=== PATIENT | male | born 1950 | race Caucasian/White ===

== ENCOUNTER 2019-10-19 14:07 | Emergency (ER) | payer OTHER ==
[~2019-10-19] VITALS: Ht 188 cm; Wt 83.9 kg
[~2019-10-19 14:07] MED LIST: AMOX500 PO; ASPI325EC PO; ASPI81CH PO; FLUO10 PO; KETO10 PO; Percocet 5-3251 EACH PO
[2019-10-19] MEDS ORDERED: Robaxin-750750 MG PO (15:09)
== END 2019-10-19 15:30 | disposition home or self-care (01) ==
LOC: ER 14:07
DX: S16.1XXA Strain of muscle, fascia and tendon at neck level, initial encounter (principal); F41.9 Anxiety disorder, unspecified; F32.9 Major depressive disorder, single episode, unspecified; Z79.899 Other long term (current) drug therapy; V43.52XA Car driver injured in collision with other type car in traffic accident, initial encounter
CPT/HCPCS: 99283

== ENCOUNTER 2019-12-11 16:14 | Emergency (ER) | payer OTHER ==
[~2019-12-11] VITALS: Ht 188 cm; Wt 86.2 kg
[~2019-12-11 16:14] MED LIST changes: +Robaxin-750750 MG PO
[2019-12-11 16:47] LABS: BASOPHILS ABSOLUTE AUTO 0.03 K/mm3 (0.00-0.23); BASOPHILS PERCENT AUTO 1 % (0-2); EOSINOPHILS PERCENT AUTO 2 % (0-6); Hematocrit 44.1 % (37.0-53.0); Hemoglobin 14.2 g/dL (13.5-17.5); IMMATURE GRAN ABSOLUTE AUTO 0.01 K/mm3 (0.00-0.10); IMMATURE GRAN PERCENT AUTO 0 % (0-1); LYMPHOCYTES PERCENT AUTO 24 % (21-46); MONOCYTES ABSOLUTE AUTO 0.57 K/mm3 (0.16-1.47); MONOCYTES PERCENT AUTO 9 % (4-13); Mean Corpuscular HGB 29.3 pg (26.0-34.0); Mean Corpuscular HGB Conc 32.2 g/dL (31.5-36.5); Mean Corpuscular Volume 91 fL (80-100); Mean Platelet Volume 11.6 fL (9.1-12.4); NEUTROPHILS ABSOLUTE AUTO 4.01 K/mm3 (1.96-9.15); NEUTROPHILS PERCENT AUTO 64 % (41-73); Platelet Count 179 K/mm3 (150-400); RDW Coefficient Variation 13.2 % (11.7-14.2); RDW Standard Deviation 44.1 fL (35.1-46.3); Red Blood Cell Count 4.84 M/mm3 (4.30-5.90); White Blood Cell Count 6.22 K/mm3 (4.00-11.30)
[2019-12-11 17:09] LABS: Alanine Aminotransfer (ALT/SGP 61 U/L (12-78); Albumin, Blood 3.5 g/dL (3.4-5.0); Alk Phos 103 U/L (50-136); Anion Gap 4 mmol/L (6-16); Aspartate Aminotrans (AST/SGOT 38 U/L (12-37); Bilirubin, Total 0.9 mg/dL (0.1-1.0); Blood Urea Nitrogen 19 mg/dL (8-24); Bun/Creatinine Ratio 23.8 (12.0-20.0); CO2, Blood 25 mmol/L (21-32); Calcium, Blood 8.8 mg/dL (8.5-10.1); Chloride, Blood 110 mmol/L (98-108); Globulin, Blood 3.6 g/dL (2.2-4.0); Glomerular Filtration Rate >60 (60-); Glucose, Blood 97 mg/dL (70-99); Potassium, Blood 3.7 mmol/L (3.5-5.5); Sodium, Blood 139 mmol/L (136-145); Total Protein, Blood 7.1 g/dL (6.4-8.2); Troponin I 0.032 ng/mL (0.000-0.040)
[2019-12-11] MEDS ORDERED: FINA5 PO (18:37)
[2019-12-11] MEDS ORDERED: Lopressor 50 mg50 MG PO (20:43)
[2019-12-11] MEDS ORDERED: ASPI325 PO (20:43)
== END 2019-12-11 20:52 | disposition home or self-care (01) ==
LOC: ER 16:14
PROVIDERS: Physician Assistant
DX: I48.91 Unspecified atrial fibrillation (principal); F15.10 Other stimulant abuse, uncomplicated; F41.9 Anxiety disorder, unspecified; F32.9 Major depressive disorder, single episode, unspecified; M17.10 Unilateral primary osteoarthritis, unspecified knee; Z79.899 Other long term (current) drug therapy
CPT/HCPCS: 36415; 71046; 80053; 84484; 85025; 93005; 93010; 96374; 99285-25

== ENCOUNTER 2019-12-12 15:59 | Emergency (ER) | payer OTHER ==
[~2019-12-12] VITALS: Ht 188 cm; Wt 86.2 kg
[~2019-12-12 15:59] MED LIST changes: +ASPI325 PO; +FINA5 PO; +Lopressor 50 mg50 MG PO
[2019-12-13] MEDS ORDERED: Neurontin 100100 MG PO (16:01)
== END 2019-12-12 16:30 | disposition left against medical advice (07) ==
LOC: ER 15:59
DX: I48.91 Unspecified atrial fibrillation (principal); Z79.899 Other long term (current) drug therapy; Z79.82 Long term (current) use of aspirin; F41.9 Anxiety disorder, unspecified; F32.9 Major depressive disorder, single episode, unspecified
CPT/HCPCS: 93005; 93010; 99284-25

== ENCOUNTER 2019-12-13 15:24 | Emergency (ER) | payer OTHER ==
[~2019-12-13] VITALS: Ht 188 cm; Wt 86.2 kg
[2019-12-13] MEDS ORDERED: Neurontin 100100 MG PO (16:01)
[2019-12-13 16:13] LABS: BASOPHILS ABSOLUTE AUTO 0.02 K/mm3 (0.00-0.23); BASOPHILS PERCENT AUTO 0 % (0-2); EOSINOPHILS ABSOLUTE AUTO 0.07 K/mm3 (0.00-0.68); EOSINOPHILS PERCENT AUTO 1 % (0-6); Hematocrit 46.1 % (37.0-53.0); Hemoglobin 14.6 g/dL (13.5-17.5); IMMATURE GRAN ABSOLUTE AUTO 0.02 K/mm3 (0.00-0.10); IMMATURE GRAN PERCENT AUTO 0 % (0-1); LYMPHOCYTES ABSOLUTE AUTO 2.17 K/mm3 (0.84-5.20); LYMPHOCYTES PERCENT AUTO 27 % (21-46); MONOCYTES ABSOLUTE AUTO 0.59 K/mm3 (0.16-1.47); MONOCYTES PERCENT AUTO 7 % (4-13); Mean Corpuscular HGB 28.6 pg (26.0-34.0); Mean Corpuscular HGB Conc 31.7 g/dL (31.5-36.5); Mean Corpuscular Volume 90 fL (80-100); Mean Platelet Volume 11.8 fL (9.1-12.4); NEUTROPHILS ABSOLUTE AUTO 5.29 K/mm3 (1.96-9.15); NEUTROPHILS PERCENT AUTO 65 % (41-73); Platelet Count 182 K/mm3 (150-400); RDW Coefficient Variation 13.2 % (11.7-14.2); RDW Standard Deviation 43.9 fL (35.1-46.3); Red Blood Cell Count 5.11 M/mm3 (4.30-5.90); White Blood Cell Count 8.16 K/mm3 (4.00-11.30)
[2019-12-13 16:30] LABS: Alanine Aminotransfer (ALT/SGP 97 U/L (12-78); Albumin, Blood 3.3 g/dL (3.4-5.0); Albumin/Globulin Ratio 0.9 (0.8-1.8); Alk Phos 114 U/L (50-136); Anion Gap 6 mmol/L (6-16); Aspartate Aminotrans (AST/SGOT 71 U/L (12-37); Blood Urea Nitrogen 33 mg/dL (8-24); CO2, Blood 23 mmol/L (21-32); Calcium, Blood 8.3 mg/dL (8.5-10.1); Chloride, Blood 107 mmol/L (98-108); Creatinine, Blood 0.79 mg/dL (0.60-1.20); Globulin, Blood 3.6 g/dL (2.2-4.0); Glomerular Filtration Rate >60 (60-); Glucose, Blood 130 mg/dL (70-99); Potassium, Blood 4.1 mmol/L (3.5-5.5); Sodium, Blood 136 mmol/L (136-145); Total Protein, Blood 6.9 g/dL (6.4-8.2); Troponin I 0.018 ng/mL (0.000-0.040)
== END 2019-12-13 18:18 | disposition home or self-care (01) ==
LOC: ER 15:24
PROVIDERS: Physician Assistant
DX: I50.9 Heart failure, unspecified (principal); I48.91 Unspecified atrial fibrillation; R06.01 Orthopnea; Z79.899 Other long term (current) drug therapy; Z79.82 Long term (current) use of aspirin; F32.9 Major depressive disorder, single episode, unspecified; F41.9 Anxiety disorder, unspecified
CPT/HCPCS: 36415; 71046; 71260; 80053; 83880; 84484; 85025; 85379; 93005; 93010; 96374-59; 99284-25; J1940; Q9967

== ENCOUNTER 2020-03-05 17:26 | Observation (INO) | payer OTHER ==
[~2020-03-05] VITALS: Ht 188 cm; Wt 85.0 kg
[~2020-03-05 17:26] MED LIST changes: -FLUO10 PO; +Neurontin 100100 MG PO
[2020-03-05 18:00] LABS: BASOPHILS ABSOLUTE AUTO 0.03 K/mm3 (0.00-0.23); BASOPHILS PERCENT AUTO 1 % (0-2); EOSINOPHILS ABSOLUTE AUTO 0.16 K/mm3 (0.00-0.68); EOSINOPHILS PERCENT AUTO 3 % (0-6); Hematocrit 46.8 % (37.0-53.0); Hemoglobin 14.7 g/dL (13.5-17.5); IMMATURE GRAN ABSOLUTE AUTO 0.01 K/mm3 (0.00-0.10); IMMATURE GRAN PERCENT AUTO 0 % (0-1); LYMPHOCYTES ABSOLUTE AUTO 1.68 K/mm3 (0.84-5.20); LYMPHOCYTES PERCENT AUTO 27 % (21-46); MONOCYTES ABSOLUTE AUTO 0.59 K/mm3 (0.16-1.47); MONOCYTES PERCENT AUTO 9 % (4-13); Mean Corpuscular HGB 28.9 pg (26.0-34.0); Mean Corpuscular HGB Conc 31.4 g/dL (31.5-36.5); Mean Corpuscular Volume 92 fL (80-100); Mean Platelet Volume 10.7 fL (9.1-12.4); NEUTROPHILS ABSOLUTE AUTO 3.82 K/mm3 (1.96-9.15); NEUTROPHILS PERCENT AUTO 61 % (41-73); Platelet Count 182 K/mm3 (150-400); RDW Coefficient Variation 14.6 % (11.7-14.2); RDW Standard Deviation 49.1 fL (35.1-46.3); Red Blood Cell Count 5.09 M/mm3 (4.30-5.90); White Blood Cell Count 6.29 K/mm3 (4.00-11.30)
[2020-03-05 18:20] LABS: Alanine Aminotransfer (ALT/SGP 45 U/L (12-78); Albumin, Blood 3.1 g/dL (3.4-5.0); Albumin/Globulin Ratio 0.7 (0.8-1.8); Alk Phos 100 U/L (50-136); Anion Gap 6 mmol/L (6-16); Aspartate Aminotrans (AST/SGOT 58 U/L (12-37); Bilirubin, Total 0.6 mg/dL (0.1-1.0); Blood Urea Nitrogen 29 mg/dL (8-24); Bun/Creatinine Ratio 34.6 (12.0-20.0); CO2, Blood 21 mmol/L (21-32); Calcium, Blood 8.7 mg/dL (8.5-10.1); Chloride, Blood 109 mmol/L (98-108); Creatinine, Blood 0.84 mg/dL (0.60-1.20); Globulin, Blood 4.5 g/dL (2.2-4.0); Glomerular Filtration Rate >60 (60-); Glucose, Blood 107 mg/dL (70-99); Potassium, Blood 4.8 mmol/L (3.5-5.5); Sodium, Blood 136 mmol/L (136-145); Total Protein, Blood 7.6 g/dL (6.4-8.2); Troponin I <0.015 ng/mL (0.000-0.040)
[2020-03-05] MEDS ORDERED: Prozac40 MG PO (19:14)
[2020-03-05] MEDS ORDERED: SPIR25 PO (19:15)
[2020-03-05] MEDS ORDERED: WARF5 PO (19:15)
[2020-03-05] MEDS ORDERED: TORSE20 PO (19:16)
[2020-03-05] MEDS ORDERED: ENTRESTO 24 MG1 EAC2 PO (19:17)
[2020-03-05] MEDS ORDERED: LOSARTAN POTASS25 M2 PO (19:17)
[2020-03-05] MEDS ORDERED: METO50ER PO (19:18)
[2020-03-05] MEDS ORDERED: POTCHL20ER PO (19:21)
[2020-03-05 19:43] LABS: International Normalized Ratio 2.15
[2020-03-05] MEDS ORDERED: ENTRESTO 24 MG1 EACH PO (20:10)
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
--- NOTE | 2020-03-06 06:04 | NUR ---
SHIFT SUMMARY PT A&O X4. VSS. PT INDEPENDENT IN RM. NO EVENTS OR CHANGES OVER NIGHT. WILL CONTINUE TO MONITOR AND PROVIDE CARE UNTIL REPORT OFF TO DAY SHIFT RN.
[2020-03-06 06:11] LABS: BASOPHILS ABSOLUTE AUTO 0.03 K/mm3 (0.00-0.23); BASOPHILS PERCENT AUTO 1 % (0-2); EOSINOPHILS PERCENT AUTO 4 % (0-6); Hematocrit 47.7 % (37.0-53.0); Hemoglobin 14.8 g/dL (13.5-17.5); IMMATURE GRAN ABSOLUTE AUTO 0.01 K/mm3 (0.00-0.10); IMMATURE GRAN PERCENT AUTO 0 % (0-1); LYMPHOCYTES ABSOLUTE AUTO 2.24 K/mm3 (0.84-5.20); LYMPHOCYTES PERCENT AUTO 43 % (21-46); MONOCYTES ABSOLUTE AUTO 0.55 K/mm3 (0.16-1.47); MONOCYTES PERCENT AUTO 11 % (4-13); Mean Corpuscular Volume 90 fL (80-100); Mean Platelet Volume 10.6 fL (9.1-12.4); NEUTROPHILS PERCENT AUTO 42 % (41-73); Platelet Count 176 K/mm3 (150-400); RDW Coefficient Variation 14.5 % (11.7-14.2); RDW Standard Deviation 48.5 fL (35.1-46.3); Red Blood Cell Count 5.28 M/mm3 (4.30-5.90); White Blood Cell Count 5.23 K/mm3 (4.00-11.30)
[2020-03-06 06:27] LABS: International Normalized Ratio 2.19; Prothrombin Time Results 22.4 Sec (9.7-11.5)
[2020-03-06 06:28] LABS: Anion Gap 3 mmol/L (6-16); Blood Urea Nitrogen 23 mg/dL (8-24); Bun/Creatinine Ratio 29.6 (12.0-20.0); CO2, Blood 28 mmol/L (21-32); Calcium, Blood 8.5 mg/dL (8.5-10.1); Chloride, Blood 110 mmol/L (98-108); Creatinine, Blood 0.78 mg/dL (0.60-1.20); Glomerular Filtration Rate >60 (60-); Glucose, Blood 87 mg/dL (70-99); Magnesium, Blood 2.3 mg/dL (1.6-2.4); Potassium, Blood 4.2 mmol/L (3.5-5.5); Sodium, Blood 141 mmol/L (136-145)
[2020-03-06 06:44] LABS: U Amphetamine Screen Not Detected; U Barbituate Screen Not Detected; U Benzodiazapine Screen Not Detected; U Buprenorphine Screen Not Detected; U Cannabinoids Screen Not Detected; U Cocaine Screen Not Detected; U Methadone Screen Not Detected; U Methamphetamine Screen Not Detected; U Opiates Screen Not Detected; U Oxycodone Screen Not Detected; U Phencyclidine Screen Not Detected; U Propoxyphene Screen Not Detected
--- NOTE | 2020-03-06 11:30 | NUR ---
[employer] HERE TO SEE PT. DR ROQUE CALLED PER REQUEST. CONTINUE POT.
--- NOTE | 2020-03-06 16:07 | NUR ---
DISCHARGE HOME PT DISCHARGED HOME. REFUSED A W/C OUT. BP STABLE AFTER INCREASED DOSE OF TOPROL. IV REMOVED WITH CANNULA INTACT. PRESSURE DRESSING APPLIED TO SITE. LIFE VEST ON. CONTINUE POT.
== END 2020-03-06 16:10 | disposition home or self-care (01) ==
LOC: ER 17:26 → PCU 17:27
PROVIDERS: Emergency Medicine; ADMIT Family Medicine
DX: I48.91 Unspecified atrial fibrillation (principal); I42.0 Dilated cardiomyopathy; F41.9 Anxiety disorder, unspecified; F32.9 Major depressive disorder, single episode, unspecified; E78.5 Hyperlipidemia, unspecified; I50.22 Chronic systolic (congestive) heart failure; Z95.810 Presence of automatic (implantable) cardiac defibrillator; Z79.01 Long term (current) use of anticoagulants; Z79.899 Other long term (current) drug therapy
CPT/HCPCS: 36415; 71045; 80048; 80053; 83735; 83880; 84484; 85025; 85610; 93005; 93010; 99285-25; A9270; G0378; G0480

== ENCOUNTER → 2023-09-03 | Outpatient (CLI) | payer OTHER ==
[~2023-09-03] MED LIST changes: +ENTRESTO 24 MG1 EAC2 PO; +ENTRESTO 24 MG1 EACH PO; +LOSARTAN POTASS25 M2 PO; +METO50ER PO; +POTCHL20ER PO; +Prozac40 MG PO; +SPIR25 PO; +TORSE20 PO; +WARF5 PO
== END ==
LOC: LAB SHORT 12:05 → LAB 12:05
DX: L70.0 Acne vulgaris (principal)
CPT/HCPCS: 88305

== ENCOUNTER 2023-10-07 09:02 | Day surgery (SDC) | payer OTHER ==
[~2023-10-07] VITALS: Ht 188 cm; Wt 88.0 kg
[~2023-10-07 09:02] MED LIST changes: +FINASTERIDE1 MG PO; +SPIR25; -SPIR25 PO; +TAMS.4ER PO
[2023-10-07 11:43] VITALS: BP 95/68
== END 2023-10-07 12:21 | disposition home or self-care (01) ==
LOC: ORSCSDS 09:02
PROVIDERS: Internal Medicine Gastroenterology
PROC: 0DJD8ZZ Inspection of Lower Intestinal Tract, Via Natural or Artificial Opening Endoscopic (ICD-10-PCS; principal; 2023-10-07 10:30)
DX: Z12.11 Encounter for screening for malignant neoplasm of colon (principal); K57.30 Diverticulosis of large intestine without perforation or abscess without bleeding; K64.8 Other hemorrhoids; R19.5 Other fecal abnormalities; I48.91 Unspecified atrial fibrillation; Z85.51 Personal history of malignant neoplasm of bladder; Z79.01 Long term (current) use of anticoagulants; Z79.899 Other long term (current) drug therapy
CPT/HCPCS: J2704; J7120

== ENCOUNTER 2024-11-20 08:06 | Day surgery (SDC) | payer OTHER ==
[~2024-11-20] VITALS: Ht 184 cm; Wt 85.6 kg
[2024-11-20] VITALS (16 sets, daily range): BP systolic 91–123; BP diastolic 60–91
[~2024-11-20 08:06] MED LIST changes: +LOPE2C PO; +ONDA4ODT MM; -SPIR25; +SPIR25 PO; +WARF1 PO
[2024-11-20] MEDS ORDERED: CeFAZolin Sodium 2,000 MG in NS 100 ML IV SCH (08:40)
[2024-11-20] MEDS ORDERED: Lactated Ringer's 1,000 ML IV SCH (08:40)
--- NOTE | 2024-11-20 09:08 | NUR ---
History, Chart, Medications and Allergies reviewed before start of procedure. Patient confirms NPO status and agrees with scheduled surgery. Patient admitted to smoking meth approx 4 weeks ago. This information was given to assigned anesthesiologist, Dr Hunter, who ordered a limited Echo pre-op. [facility] tech here to complete limited Echo in Day Surgery. Patient states he feels he is in good health and could climb 2-4 flights of stairs with good endurance, but states his right knee needs to be replaced due to arthritis and causes him pain and difficulty walking. Patient ambulated into Day Surgery with steady gait.
[2024-11-20] MEDS ORDERED: Bupivacaine 0.5% HCl 5 MG/ML 30MLVIAL ONE (10:14)
[2024-11-20] MEDS ORDERED: CeFAZolin Sodium 2,000 MG VIAL ONE (10:16)
[2024-11-20] MEDS ORDERED: propofoL 20 ML IV ONE (10:50)
[2024-11-20] MEDS ORDERED: FentaNYL Citrate 50 MCG/ML 2 ML Injection ONE ×2 (10:51→11:28)
--- NOTE | 2024-11-20 10:55 | NUR ---
PATIENT WENT OR WITH HEARING AIDES LEFT IN. GLASSES BROUGHT TO PACU FOR SAFE KEEPING.
[2024-11-20] MEDS ORDERED: Phenylephrine HCl 100 MCG/ML-NS 10MLSYR (1MG/10ML) ONE (11:13)
[2024-11-20] MEDS ORDERED: ePHEDrine Sulfate 50 MG/ML 1ML Injection ONE (11:13)
[2024-11-20] MEDS ORDERED: Midazolam HCl 1MG / ML 2ML Vial ONE (11:21)
[2024-11-20] MEDS ORDERED: Dexamethasone Sod Phos 10 MG/ML 1ML VIAL ONE (11:34)
[2024-11-20] MEDS ORDERED: Ondansetron HCl 2 MG / ML 2ML Vial ONE (11:34)
[2024-11-20] MEDS ORDERED: Esmolol HCL 10 MG/ML 10ML VIAL ONE (11:34)
[2024-11-20] MEDS ORDERED: Ketorolac Tromethamine 30mg Vial ONE (12:28)
[2024-11-20] MEDS ORDERED: Sugammadex Sodium 200 MG/2ML SDV (100 MG/ML) ONE (12:28)
[2024-11-20] MEDS ORDERED: OxyCODONE 5 mg/Acetamin 325 mg TABLET PO PRN (13:55)
[2024-11-20] MEDS ORDERED: HYDROmorphone HCl/Pf 1MG SYR ONE (13:58)
--- NOTE | 2024-11-20 14:42 | NUR ---
UNABLE TO CHART IN DISCHARGE MENU, TTRANSFERED PT TO STEP AT 1435. VSAT BASELINE FOR PT.. RECEIVED 1MG DILAUDID IV. PAIN AT A TOLERABLE LEVEL. INCISIONS X3 REMAIN CDI. GLASSES ON CHART. BILAT HEARING AIDES IN PLACE.
--- NOTE | 2024-11-20 16:34 | NUR ---
DISCHARGE NOTE PT A&OX4, BREATHING RA, TOLERATING PO INTAKE. PO PAIN PILL GIVEN PER MD ORDERS. VSS. PT STATES PAIN LEVEL IS "TOLERABLE." PT HAS NO COMPLAINTS OF NAUSEA AND HAS SOME MILD DIZZINESS PRIOR TO DISCHARGE. Patient up to Ambulate independently. Gait steady. Discharge instructions reviewed with patient. Patient verbalizes understanding. Copy given to patient to take home. Dressing to procedure site clean, dry, intact with no visible drainage, swelling, erythema or bruising noted. Discharged via wheelchair to private car for ride home.
== END 2024-11-20 16:20 | disposition home or self-care (01) ==
LOC: ORSCMMR 08:06 → ORD 09:30 → ORSCMMR 16:20
PROVIDERS: Surgery
PROC: 3E0T3BZ Introduction of Anesthetic Agent into Peripheral Nerves and Plexi, Percutaneous Approach (ICD-10-PCS; principal; 2024-11-20 09:30)
PROC: 8E0W4CZ Robotic Assisted Procedure of Trunk Region, Percutaneous Endoscopic Approach (ICD-10-PCS; principal; 2024-11-20 09:30)
PROC: 0YUA4JZ Supplement Bilateral Inguinal Region with Synthetic Substitute, Percutaneous Endoscopic Approach (ICD-10-PCS; principal; 2024-11-20 09:30)
DX: K40.31 Unilateral inguinal hernia, with obstruction, without gangrene, recurrent (principal); K40.30 Unilateral inguinal hernia, with obstruction, without gangrene, not specified as recurrent; I10 Essential (primary) hypertension; I50.9 Heart failure, unspecified; I25.2 Old myocardial infarction; Z79.899 Other long term (current) drug therapy; Z79.01 Long term (current) use of anticoagulants
CPT/HCPCS: 93306; A9270; J0690; J1100; J1171; J1885; J2250; J2371; J2405; J2704; J3010; J7120